=== PATIENT | female | born 1975 | race Caucasian/White ===

== ENCOUNTER 2020-06-21 11:47 | Outpatient (CLI) | payer BC, SELFPAY ==
[2020-06-21 12:04] LABS: Hematocrit 38.9 % (37.0-47.0); Mean Corpuscular HGB Conc 33.4 g/dl (32-36); Mean Corpuscular Hemoglobin 29.3 pg (26-34); Mean Corpuscular Volume 87.8 fl (80-100); Mean Platelet Volume 9.3 fl (7.4-10.4); Platelet Count Result 355 k/mm3 (150-375); Red Blood Count 4.43 M/mm3 (4.2-5.4); Red Cell Distribution Width 12.8 % (11.5-14.5); White Blood Count 12.6 K/mm3 (4.5-10.0)
[2020-06-21 12:32] LABS: Beta HCG Quantitative < 2.39 mIU/ML
[2020-06-21 12:47] LABS: Total Triiodothyronine (T3) 1.35 NG/ML (0.97-1.69)
[2020-06-26 07:46] LABS: Prolactin 5.9 ng/mL (***)
== END 2020-06-21 11:48 | disposition home or self-care (01) ==
PROVIDERS: Visit Provider Obstetrics & Gynecology
DX: N92.6 Irregular menstruation, unspecified (principal)
CPT/HCPCS: 36415; 84146; 84443; 84480; 84702; 85027

== ENCOUNTER → 2020-06-27 15:01 | Outpatient (CLI) | payer BC, SELFPAY ==
--- NOTE | ~2020-06-27 | US_ITS ---
EXAMINATION: US pelvic complete w TV DATE: 06/27/2020 15:30 INDICATION: Irregular menstruation, unspecified TECHNIQUE: Multiple transabdominal and endovaginal sonographic images of the pelvis were obtained. COMPARISON: None. FINDINGS: The uterus measures 11.9 x 5.2 x 6.2 cm. The endometrial complex measures 16 mm. The right ovary measures 4.0 x 3.0 x 3.3 cm and contains a 2.7 cm cyst. The left ovary measures 2.6 x 1.6 x 1.7 cm. There is normal vascular flow in the ovaries. There is no free fluid in the pelvis. IMPRESSION: 1. No sonographic correlate for the patient's symptoms. Reviewed, dictated and finalized at location A. 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
== END ==
PROVIDERS: Visit Provider Obstetrics & Gynecology
DX: N92.6 Irregular menstruation, unspecified (principal)
CPT/HCPCS: 76830; 76856

== ENCOUNTER → 2020-08-11 14:40 | Outpatient (CLI) | payer BC, SELFPAY ==
--- NOTE | ~2020-08-11 | MM_ITS ---
EXAMINATION: MM screening tesfaye BI w alessandra HISTORY: Screening mammogram TECHNIQUE: Craniocaudal and mediolateral oblique 3-D tomosynthesis images were obtained and synthetic 2-D images were generated. CAD analysis was submitted and interpreted. COMPARISON: No prior mammogram is available for comparison at this institution. BREAST PARENCHYMAL COMPOSITION: There are scattered areas of fibroglandular density. FINDINGS: There is no evidence of suspicious mass, calcification, or architectural distortion to sugg est malignancy in either breast. IMPRESSION: 1. No mammographic evidence of malignancy. 2. Recommend routine screening mammography in one year. BI-RADS Category 1: Negative Reviewed, dictated and finalized at location A. 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
== END ==
PROVIDERS: Visit Provider Obstetrics & Gynecology
DX: Z12.31 Encounter for screening mammogram for malignant neoplasm of breast (principal)
CPT/HCPCS: 77063; 77067

== ENCOUNTER → 2021-12-07 15:57 | Outpatient (CLI) | payer BC, SELFPAY ==
--- NOTE | ~2021-12-07 | MM_ITS ---
EXAMINATION: MM screening tesfaye BI w alessandra HISTORY: Screening mammogram TECHNIQUE: Craniocaudal and mediolateral oblique 3-D tomosynthesis images were obtained and synthetic 2-D images were generated. CAD analysis was submitted and interpreted. COMPARISON: 08/11/2020 BREAST PARENCHYMAL COMPOSITION: There are scattered areas of fibroglandular density. FINDINGS: There is no suspicious mass, calcification, or architectural distortion to suggest malignan cy in either breast. There has been no suspicious interval change. IMPRESSION: 1. No mammographic evidence of malignancy. 2. Recommend routine screening mammography in one year. BI-RADS Category 1: Negative Reviewed, dictated and finalized at location A.
== END ==
PROVIDERS: PCP Obstetrics & Gynecology; Visit Provider Obstetrics & Gynecology
DX: Z12.31 Encounter for screening mammogram for malignant neoplasm of breast (principal)
CPT/HCPCS: 77063; 77067

== ENCOUNTER 2022-09-17 15:50 | Observation (INO) | payer BC, SELFPAY ==
[2022-09-17] VITALS (23 sets, daily range): BP systolic 183–200; BP diastolic 103–123; PULSE 87–131; RESP 9–29; TEMP 36.4; O2SAT 98–100
--- NOTE | ~2022-09-17 | XR_ITS ---
EXAMINATION: XR chest 2V DATE: 09/17/2022 16:46 INDICATION: Racing heart. TECHNIQUE: PA and lateral views of the chest were obtained. COMPARISON: None FINDINGS: The lungs are clear with no focal airspace opacities, pulmonary edema, pleural effusion or pneumothor ax. The cardiomediastinal silhouette is normal. Mild thoracic spondylosis. Chronic appearing mild ant erior wedging of a few mid thoracic vertebral bodies. IMPRESSION: 1. No acute cardiopulmonary disease. Reviewed, dictated and finalized at location A.
--- NOTE | 2022-09-17 15:53 | ECG_ITS ---
Measurements Intervals Maurice Rate: 126 P: 54 RI: 146 QRS: 11 QRSD: 82 T: 28 QT: 309 QTc: 447 Interpretive Statements SINUS TACHYCARDIA CANNOT RULE OUT SEPTAL INFARCT, AGE INDETERMINATE BASELINE ARTIFACT- III, AVF ABNORMAL ECG NO PREVIOUS ECG AVAILABLE FOR COMPARISON Electronically Signed On 09-17-2022 16:56:02 CDT by Bernardo Sanderson D.O.
--- NOTE | 2022-09-17 17:40 | ED.ARRPALP ---
HPI - Arrhythmia/Palpitations General Chief Complaint: Arrhythmia/Palpitations <Sari Rosas PA-C - Last Filed: 09/18/22 03:27> Stated Complaint: heart is racing for no reason <Sari Rosas PA-C - Last Filed: 09/18/22 03:27> Time Seen by Provider: 09/17/22 17:34 <GALINA Watkins Last Filed: 09/18/22 03:27> Source: patient <GALINA Watkins Last Filed: 09/18/22 03:27> Mode of arrival: ambulatory <GALINA Watkins Last Filed: 09/18/22 03:27> Limitations: no limitations <GALINA Watkins Last Filed: 09/18/22 03:27> History of Present Illness HPI narrative: Patient is a 46-year-old female who presents to the ED with report of palpitations. Patient reports she was getting ready to take her son to a doctor's appointment around 345 today and attempting to put some make-up on when she suddenly noticed her heart beating fast. She looked down at her Fitbit watch and noted that her HR was in the 140s. Patient states that she was rushing around and felt like they needed to leave quickly to make it to the appointment, but she otherwise denied feeling anxious. She did become slightly anxious and short of breath after noticing that her heart rate was so fast. She denied any other symptoms. She denies chest pain, abdominal pain, nausea, vomiting, recent cough or cold symptoms, fevers. Patient reports having similar symptoms in the past with taking allergy pills. She did not take any medications today. Denies any new medications. She did not drink any caffeine. Denies history of atrial fibrillation, SVT. <GALINA Watkins Last Filed: 09/18/22 03:27> Related Data Home Medications: Home Medications Medication Instructions Recorded Confirmed calcium carbonate 600 mg calcium 600 mg PO DAILY 08/24/19 09/18/22 (1,500 mg) tablet (Calcium) folic acid 1 mg tablet 1 mg PO DAILY 08/24/19 09/18/22 multivitamin 1 tablet PO DAILY 09/01/20 09/18/22 psyllium husk (with sugar) 3 1 tbsp PO DAILY chronic 09/11/21 09/18/22 gram/7 gram oral powder (Metamucil constipation (with sugar)) clobetasol 0.05 % topical ointment 1 applic topical BID skin 09/18/22 09/18/22 irritation <Sari Rosas PA-C - Last Filed: 09/18/22 03:27> Allergies/Adverse Reactions: Allergies Allergy/AdvReac Type Severity Reaction Status Date / Time azithromycin Allergy Unknown Unknown Verified 09/17/22 15:53 clindamycin Allergy Unknown Unknown Verified 09/17/22 15:53 <GALINA Watkins Last Filed: 09/18/22 03:27> Review of Systems Review of Systems: CONSTITUTIONAL: Denies fever, chills, or sweats. ENT: Denies rhinorrhea, congestion, sore throat. CARDIOVASCULAR: See HPI. RESPIRATORY: See HPI. GASTROINTESTINAL: Denies abdominal pain, nausea, vomiting, or diarrhea. GENITOURINARY: Denies dysuria or hematuria. MUSCULOSKELETAL: Denies back pain, joint pain, or myalgia. NEUROLOGIC: Denies headache, numbness, or weakness. <GALINA Watkins Last Filed: 09/18/22 03:27> All systems reviewed & are unremarkable except as noted in HPI and below <GALINA Watkins Last Filed: 09/18/22 03:27> [facility] Past Medical History Medical History: Medical History Morbid obesity with BMI of 40.0-44.9, adult Vaginal delivery White coat syndrome with hypertension <GALINA Watkins Last Filed: 09/18/22 03:27> Surgical History Surgical History: Surgical History No pertinent past surgical history <GALINA Watkins Last Filed: 09/18/22 03:27> Family History Family History: Family History (Updated 09/18/22 @ 04:02 by Dafne Cabrales DO) Father Diabetes mellitus, Onset Age: 65 Patient's father is in good health Mother Patient's mother is Malignant melanoma,
[2022-09-17 18:20] LABS: Basophils Absolute Auto 0.1 K/mm3 (0.0-0.1); Basophils Percent Auto 0.8 % (0.2-1.2); Eosinophils Absolute Auto 0.2 K/mm3 (0-0.3); Eosinophils Percent Auto 2.2 % (0-4.4); Hematocrit 47.8 % (37.0-47.0); Hemoglobin 15.9 g/dL (12.0-15.0); Immature Granulocyte Absolute 0.02 K/mm3 (0.00-0.031); Immature Granulocyte Percent A 0.2 % (0-0.5); Lymphocytes Absolute Auto 2.86 K/mm3 (0.9-3.2); Lymphocytes Percent Auto 27.6 % (18.3-44.2); Mean Corpuscular HGB Conc 33.3 g/dl (32-36); Mean Corpuscular Hemoglobin 28.9 pg (26-34); Mean Corpuscular Volume 86.9 fl (80-100); Mean Platelet Volume 9.6 fl (7.4-10.4); Monocytes Absolute Auto 0.7 K/mm3 (0.1-0.6); Neutrophils Absolute Auto 6.4 K/mm3 (1.3-6.7); Neutrophils Percent Auto 62.2 % (45.5-73.1); Platelet Count Result 425 k/mm3 (150-375); Red Cell Distribution Width 13.3 % (11.5-14.5); White Blood Count 10.4 K/mm3 (4.5-10.0)
[2022-09-17 18:29] LABS: Alanine Aminotransferase 57 U/L (6-35); Albumin Level 4.8 g/dL (3.5-5.1); Alkaline Phosphatase 82 U/L (38-126); Anion Gap 7 mmol/L (8-16); Aspartate Amino Transferase 45 U/L (14-36); Bilirubin,Total 0.6 mg/dL (0.2-1.3); Blood Urea Nitrogen 12 mg/dL (7-17); Calcium 9.2 mg/dL (8.4-10.2); Carbon Dioxide 24 mmol/L (22-30); Chloride 108 mmol/L (98-107); Estimated CRCL calculation 119 ml/min; Estimated Glomerular Filt Rate > 60; Glucose 97 mg/dL (65-110); Lipase 51 U/L (23-300); Magnesium 2.2 mg/dL (1.6-2.3); Potassium 4.3 mmol/L (3.4-5.0); Sodium 139 mmol/L (137-145)
[2022-09-17 18:33] LABS: Appearance Urine Clear (Clear); Bilirubin Urine Negative (Negative); Blood Urine 3+ (Negative); Color Urine Yellow (Yellow); Glucose Urine UA Negative (Negative); Ketones Urine Negative (Negative); Leukocyte Esterase Ur Negative LEU/UL (Negative); Nitrate Urine Negative (Negative); Protein Urine Negative (Negative); Urobilinogen Urine 0.2 mg/dL (<2.0)
[2022-09-17 18:36] LABS: Partial Thromboplastin Time 28.2 SECONDS (22.3-36.8); Prothrombin Time 12.8 Seconds (11.1-14.7)
[2022-09-17 18:41] LABS: Influenza A QL RT-PCR Negative (Negative); Influenza B QL RT-PCR Negative (Negative); SARS-CoV-2 RNA PCR Negative
[2022-09-17 18:45] LABS: Add Urine Microscopic? YES
[2022-09-17 18:46] LABS: Bacteria Urine None Seen /hpf; Squamous Epithelial Cell Urine Few /hpf (Few); WBC Urine None seen /hpf (0-3)
[2022-09-17 19:00] LABS: Thyroid Stimulating Hormone 0.238 uIU/mL (0.465-4.680)
[2022-09-17 19:07] LABS: D Dimer 0.27 ug/mL (<0.48)
[2022-09-17] MEDS: SODIUM CHLORIDE 0.9% IV 1,000 ML 999 ML IV CONT ×2 (19:23→21:57)
[2022-09-17 20:00] LABS: Troponin I 0.044 ng/mL (0.000-0.034)
[2022-09-17] MEDS: LABETALOL HCL INJ 100 MG/20 ML VIAL 20 MG IV PUSH (20:18)
[2022-09-17 20:59] LABS: Free T4 Free Thyroxine 1.08 ng/mL (0.78-2.19)
[2022-09-17] MEDS: hydrALAZINE HCL 20 MG/ML VIAL 10 MG IV PUSH (21:57)
[2022-09-17] MEDS: METOPROLOL SUCCINATE EXT REL 25 MG TABCR PO (22:44)
[2022-09-18] VITALS (9 sets, daily range): BP systolic 129–205; BP diastolic 51–120; PULSE 78–91; RESP 16–18; TEMP 36–36.4; O2SAT 99–100; BMI 40.5
--- NOTE | 2022-09-18 | ECHO_ITS ---
Patient Info Name: Kari العراقي Age: 46 years : 1975 Gender: Female Ht: 65 in Wt: 222 lbs BSA: 2.19 m2 HR: 94 bpm BP: 129 / 51 mmHg Technical Quality: Good Exam Date: 09/18/2022 11:33 AM Exam Location: [facility] Patient Status: Inpatient Admit Date: 09/17/2022 Staff Ordering Physician: Dafne Cabrales DO Director Heart: Kamaljit Herbert RDCS, RT Attending Provider: Dafne Cabrales DO Referring Physician: Keron KLINE; Exam Type: CA echo doppler color flow Study Info Indications - Elevated troponin R00.0 - Tachycardia, unspecified Complete two-dimensional, color flow and Doppler transthoracic echocardiogram is performed. Strain analysis performed. Summary 1. Complete two-dimensional, color flow and Doppler transthoracic echocardiogram is performed. 2. Left ventricular chamber dimension is normal. 3. Left ventricular systolic function is normal, estimated at 60-65%. 4. The left ventricular diastolic function is normal. 5. E/e' 7 is not elevated. 6. Global longitudinal strain is normal at -19.3%. 7. There is trace tricuspid valve regurgitation. Left Ventricle E/e' 7 is not elevated. Global longitudinal strain is normal at -19.3%. Left ventricular chamber dimension is normal. Left ventricular systolic function is normal, estimated at 60-65%. The left ventricular diastolic function is normal. Right Ventricle Right ventricular systolic function is normal and with normal TAPSE 2.6 cm. Right ventricular chamber dimension is normal. Left Atria Left atrial chamber dimension is normal. Right Atria Right atrial chamber dimension is normal. Aortic Valve The aortic valve is trileaflet. There is no aortic valve stenosis. There is no aortic valve regurgitation. Pulmonic Valve There is no pulmonic regurgitation. Mitral Valve There is no mitral valve stenosis. There is no mitral valve regurgitation. Tricuspid Valve RVSP is not calculated due to an inadequate TR jet. There is trace tricuspid valve regurgitation. Pericardium/Pleural There is no pericardial effusion. Inferior Vena Cava Normal inferior vena cava with >50% collapse upon inspiration consistent with normal right atrial pressure, 5 mmHg. Aorta The aortic root size at the sinus of Valsalva is normal. Left Ventricular Outflow Tract Name Value Normal LVOT 2D LVOT Diameter 1.9 cm LVOT Doppler LVOT Peak Gradient 6 mmHg LVOT Mean Gradient 3 mmHg LVOT VTI 26 cm LVOT VTI/AV VTI Ratio 0.7 LVOT Stroke Volume 78 ml LVOT CO 6.8 l/min LVOT CI 3.1 l/min/m2 Mitral Valve Name Value Normal MV Doppler MV Decel Brooks 503 cm/s2
--- NOTE | 2022-09-18 00:42 | PM.IMHP ---
H&P: HPI History of Present Illness Date/Time: 09/18/22 00:42 Chief Complaint: Elevated heart rate Narrative: 46-year-old female with past medical history of morbid obesity and white coat hypertension who presented to the ER with tachycardia. The patient reports that she was getting ready to leave the house with her son and knew that she needed to her ED already. She was putting on her makeup when she noticed her heart rate felt as if it was fast. She looked at her fit bit in her heart rate was 140. She denies any associated chest pain, shortness breast or any recent lower extremity swelling or leg pain. She has relatively active and usually walks on the treadmill on a somewhat frequent basis. She reports that she usually walks on the treadmill at a brisk pace for anywhere from 30-45 minutes. She has not been able to do so in the last couple of weeks because she had a upper GI bug that caused her to have nausea vomiting and diarrhea. The symptoms for the GI symptoms occurred for 2 days. She still has some residual abdominal pain in did not feel quite right so she just had not exercised since then. She reports that she still feels as if she may be a little bit dehydrated from her GI illness. She denies any recent fevers or chills. The she has not had any orthopnea. She denies any significant changes in her weight. Her appetite has remained stable. She did not notice any hematemesis coffee-ground emesis or hematochezia or melena during her GI illness. She does have history of white coat hypertension but on review patient's chart usually her white coat hypertension symptoms usually involve systolic blood pressures of 140-150. In the ER the patient's blood pressures ranged between 180-200 systolic over 103-123 diastolic. She reports that she used to check her blood pressures on occasion but has not done so in a significant amount time. She reports that she did feel somewhat anxious once she realized her heart rate was elevated. However she denies sensation of anxiety prior to onset of symptoms. She has not been taking any energy drinks or herbal supplements. She denies any significant caffeine use. She never has shortness of breath or chest pain with her exercise. She denies any calf pain or swelling. D-dimer in the ER was negative. She is low risk for pulmonary embolism on Wells criteria. She denies any history of snoring. She reports that she usually does not sleep much. Her reports that it is like the patient is afraid she is going to miss something. She has never been a sound sleeper for her entire life. Subsequently she states that she is always tired. She denies any headache or vision changes. She is currently on her menstrual cycle. She had 1 month of unusual menstrual bleeding but has returned to her normal cycle. She does not have a history of essential hypertension and her father was in his late 70s does not even have hypertension. Review of Systems Review of Systems: 12 systems were reviewed with pertinent positives and negatives per HPI. Except as documented in the HPI, all other systems were reviewed and are negative. [facility] Past Medical History Medical History Morbid obesity with BMI of 40.0-44.9, adult Vaginal delivery White coat syndrome with hypertension Surgical History Surgical History No pertinent past surgical history Family History Family History (Updated 09/18/22 @ 04:02 by Dafne Cabrales DO) Father Diabetes mellitus, Onset Age: 65 Patient's father is in good health Mother Patient's mother is Malignant melanoma, Onset Age: 42 Social History Social History (Updated 09/18/22 @ 04:04 by Dafne Cabrales DO) Social History: She lives at home with her and 10-year-old son. She is a lifelong nonsmoker and does not drink or use illicit substances. 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
--- NOTE | 2022-09-18 03:24 | PC.NURSE ---
Pt admitted to 320 from ER for c/o palpitations. Currently no symptoms A/Ox4 calm, cooperative up in room-Tele shows SR. SL- flushed patent. Room air -- lungs clear Given food- tolerated well. Hx of chronic constipation- use of metamucil, skin irritation in groin folds at times- uses clobetasol 0.05% PRN, Took control medications 2021 for irregular bleeding which caused increased bleeding- stopped medication and menses returned to normal ...Hx of COVID 03/22 received flu/ covid vaccine.. 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 Allergies - azithromycin, clindamycin- rash. No valuables per pt, belongings as bedside. Instructions/ orientation given to unit, plan of care. Continue to monitor.
[2022-09-18 03:42] LABS: Troponin I 0.019 ng/mL (0.000-0.034)
[2022-09-18 05:52] LABS: Hematocrit 45.7 % (37.0-47.0); Hemoglobin 14.8 g/dL (12.0-15.0); Mean Corpuscular HGB Conc 32.4 g/dl (32-36); Mean Corpuscular Hemoglobin 28.7 pg (26-34); Mean Corpuscular Volume 88.7 fl (80-100); Mean Platelet Volume 10.1 fl (7.4-10.4); Platelet Count Result 441 k/mm3 (150-375); Red Blood Count 5.15 M/mm3 (4.2-5.4); Red Cell Distribution Width 13.7 % (11.5-14.5); White Blood Count 12.6 K/mm3 (4.5-10.0)
[2022-09-18 06:33] LABS: Thyroid Stimulating Hormone Reflex 0.663 uIU/mL (0.465-4.68)
[2022-09-18] MEDS: ACETAMINOPHEN 325 MG TABLET 650 MG PO ×2 (07:51→14:28)
[2022-09-18] MEDS: CALCIUM CARBONATE (OSCAL) 500 MG TABLET PO (07:52)
[2022-09-18] MEDS: METOPROLOL SUCCINATE EXT REL 50 MG TABCR PO (07:52)
[2022-09-18] MEDS: FOLIC ACID 1 MG TABLET PO (07:52)
[2022-09-18] MEDS: MULTIVITAMINS THERAPEUTIC TAB (*BKC) 1 TABLET PO (07:53)
[2022-09-18] MEDS: ENOXAPARIN 40 MG/0.4 ML SYRINGE SUB-Q (07:53)
[2022-09-18 10:18] LABS: Anion Gap 10 mmol/L (8-16); Blood Urea Nitrogen 9 mg/dL (7-17); Calcium 8.8 mg/dL (8.4-10.2); Carbon Dioxide 21 mmol/L (22-30); Chloride 109 mmol/L (98-107); Estimated CRCL calculation 147 ml/min; Estimated Glomerular Filt Rate > 60; Glucose 111 mg/dL (65-110); Potassium 3.8 mmol/L (3.4-5.0); Sodium 140 mmol/L (137-145)
[2022-09-18] MEDS: hydrALAZINE HCL 20 MG/ML VIAL 10 MG IV PUSH (14:21)
--- NOTE | 2022-09-18 15:57 | PM.DS ---
DS: Admitting Diagnosis Discharge Date 09/18/22 Admitting Diagnosis Dehydration, tachycardia DS: Discharge Diagnosis Discharge Diagnosis (1) Hypertensive urgency: Code(s): I16.0 - Hypertensive urgency Status: Acute (2) Sinus tachycardia: Code(s): R00.0 - Tachycardia, unspecified Status: Acute (3) Elevated troponin: Code(s): R77.8 - Other specified abnormalities of plasma proteins Status: Acute DS: Summary Hospital Course Reason for hospitalization: dehydration, tachycardia Hospital Course: This is a 46 year old with history of white coat hypertension present to the ED due to tachycardia. Patient had recently had a GI bug that caused vomiting And diarrhea. Patient had been putting on her makeup at home and her Fitbit showed her that her heart rate was 140. Patient felt as if her heart was racing at this time. Patient did not have any associated chest pain, shortness a breath or lower extremity edema. patient with a history of white coat hypertension with blood pressures usually in the 140-150. When she arrived to the ED her systolic blood pressure was between 180 and 200. Patient has pretty bad anxiety about being in the hospital and while I was talking to her she started crying. Patient does have blood pressure cuff at home and she does check her blood pressure on occasion although has not done it recently. Once patient saw her elevated heart rate she became severely inches which could have caused her heart rate to become even more elevated and her blood pressure to become elevated as well. Patient was given metoprolol and hydralazine for hypertension. EKG revealed sinus tachycardia. Patient's troponins were trended and were flat. Patient's patient's surgery prone in within normal range. This most likely due to hypertension rather than cardiac ischemia. Chest x-ray with no acute cardiopulmonary process. Patient did have mildly elevated white blood cell count but this could be reactive. Patient's BUN and creatinine within normal limits. Patient did have elevated hemoglobin hematocrit indicating the patient could be dehydrated especially given the fact that she had recent nausea vomiting for several days. Patient received 2 L of normal saline. After patient received 2 L of normal saline heart rate Stabilized and remained in normal range. Patient's TSH was low at 0.238 and T4 was normal. I recommend this being recheck it as an outpatient with primary care provider. Patient feeling much better although she is still very anxious due to being in the hospital. Patient would like to be discharged due to feeling even worse now that she is in the hospital due to her anxiety. I do believe that patient's blood pressure is due to her anxiety and nervousness about being in the hospital. Recommend that patient keep a blood pressure log and follow-up with a primary care provider in 1 week. I will give patient metoprolol 50 mg as an outpatient and instructed discontinue if heart rate lower than 50 and systolic blood pressure less than 100. Time Spent with Patient Time attestation: Total time spent providing and/or coordinating discharge services: DS: Data Data Completed and Pending Labs on day of discharge: Labs from last 24 hours 09/18/22 09/18/22 09/18/22 03:14 03:14 03:10 WBC 12.6 H RBC 5.15 Hgb 14.8 Hct 45.7 MCV 88.7 MCH 28.7 MCHC 32.4 RDW 13.7 Plt Count 441 H MPV 10.1 Immature Gran % (Auto) Neut % (Auto) Lymph % (Auto) Coleman % (Auto) Eos % (Auto) Baso % (Auto) Lymph # (Auto) Coleman # (Auto) Eos # (Auto) Baso # (Auto) Abs Immat Gran (auto) Absolute Neuts (auto) Absolute Nucleated RBC Nucleated RBC % PT INR APTT D-Dimer Sodium Potassium Chloride Carbon Dioxide Anion Gap BUN Creatinine Estim Creat Clear Calc Estimated GFR Glucose Calcium Magnesium
== END 2022-09-18 16:47 | disposition home or self-care (01) ==
LOC: ANHED 21:46 → ANH3MEDSUR 09-18 02:19 → ANHIMU 09-19 10:48
PROVIDERS: Emergency Medicine; Admitting Provider Internal Medicine; Emergency Provider Physician Assistant; Visit Provider Internal Medicine
DX: I16.0 Hypertensive urgency (principal); R00.0 Tachycardia, unspecified; R77.8 Other specified abnormalities of plasma proteins; R71.8 Other abnormality of red blood cells; E66.01 Morbid (severe) obesity due to excess calories; Z68.41 Body mass index [BMI] 40.0-44.9, adult; Z20.822 Contact with and (suspected) exposure to COVID-19; R94.31 Abnormal electrocardiogram [ECG] [EKG]; Z79.52 Long term (current) use of systemic steroids; Z79.899 Other long term (current) drug therapy
CPT/HCPCS: 36415; 71046; 80048; 80053; 81001; 83690; 83735; 84439; 84443; 84484; 85025; 85027; 85380; 85610; 85730; 87636; 93005; 93306; 96361; 96372; 96374; 96375; 99285; A9270; G0378; J0360; J1650; J7030

== ENCOUNTER 2023-05-06 01:47 | Day surgery (SDC) | payer BC, SELFPAY ==
[2023-04-25 14:20] VITALS: BMI 38.0
--- NOTE | 2023-05-03 10:07 | SUR.PREOP ---
Left message on pt's voicemail regarding upcoming procedure and prep on Saturday
--- NOTE | 2023-05-03 10:10 | SUR.PREOP ---
called patient about upcoming procedure on Saturday. Message left on patient's voicemail regarding arrival time and prep starting on Saturday.
[2023-05-06 10:26] VITALS: BP 166/87; PULSE 108; RESP 18; TEMP 36.4; O2SAT 100
[2023-05-06] MEDS: LACTATED RINGERS 1,000 ML 150 ML IV CONT (10:38)
--- NOTE | 2023-05-06 10:49 | PM.HPGS ---
History of Present Illness History of Present Illness Consent: Risks, benefits, and alternatives have been discussed and questions answered. Patient agrees to proceed with procedure. Chief complaint: neoplasm screening Narrative: Kari العراقي is a 47 year old female Presents for screening colonoscopy. Patient's current weight appetite and bowel movements are normal. Patient denies abdominal pain. Bowel habits are normal. She denies any bleeding. Family history noncontributory. Review of Systems Review of Systems: Review of systems noncontributory. [facility] Past Medical History Medical History Chronic insomnia Morbid obesity with BMI of 40.0-44.9, adult Vaginal delivery White coat syndrome with hypertension Surgical History Surgical History No pertinent past surgical history Family History Family History Father Diabetes mellitus, Onset Age: 65 Patient's father is in good health Mother Patient's mother is Malignant melanoma, Onset Age: 42 Social History Social History Social History: She lives at home with her and 10-year-old son. She is a lifelong nonsmoker and does not drink or use illicit substances. 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 Gender identity (if verbalized by the patient): Female Sexual Orientation (if Verbalized by the Patient): Straight or Heterosexual Spiritual care concerns: No Meds Home Medications and Allergies Home Medications Medication Instructions Recorded Confirmed Type multivitamin 1 tablet PO DAILY 09/01/20 05/06/23 History psyllium husk (with sugar) 3 1 tbsp PO DAILY chronic 09/11/21 05/06/23 History gram/7 gram oral powder (Metamucil constipation (with sugar)) clonazepam 0.5 mg tablet 0.5 mg PO QHS #30 tabs 09/20/22 05/06/23 Rx clobetasol 0.05 % topical ointment 1 applic topical BID skin 10/11/22 05/06/23 Rx irritation #30 grams fluoxetine 10 mg tablet 10 mg PO DAILY #90 tabs 02/28/23 05/06/23 Rx lisinopril 20 1 tablet PO DAILY #90 tabs 04/15/23 05/06/23 Rx mg-hydrochlorothiazide 25 mg tablet Adult Probiotic 1 tab-cap PO DAILY 04/25/23 05/06/23 History Emanuel 1 tab-cap PO DAILY 04/25/23 05/06/23 History calcium carbonate 600 mg-vitamin 1 tablet PO DAILY 04/25/23 05/06/23 History D3 10 mcg (400 unit) tablet (Calcium 600 + D(3)) garlic 1,000 mg capsule 1,000 mg PO DAILY 04/25/23 05/06/23 History propranolol 20 mg tablet 20 mg PO Q8H PRN Tachycardia 04/25/23 05/06/23 History Allergies Allergy/AdvReac Type Severity Reaction Status Date / Time azithromycin Allergy Intermediate Rash Verified 05/06/23 10:21 clindamycin Allergy Intermediate Rash Verified 05/06/23 10:21 Vital Signs Vital Signs - 24 hr 05/06/23 10:26 Temperature 97.6 F Pulse Rate 108 H Respiratory Rate 18 Blood Pressure 166/87 H Pulse Oximetry 100 Oxygen Delivery Room Air Exam Narrative: Physical exam reveals patient to be alert. Vital signs stable. HEENT exam is unremarkable. Patient is anicteric. Lungs are clear to auscultation and percussion. Heart is without murmur or extra sounds. Abdomen Is
--- NOTE | 2023-05-06 10:58 | WPDANESEPPF ---
Anes - Initial Pre Proc Eval Procedure: Operation Date: 05/06/23 11:30 Proposed Procedures p Screening Colonoscopy - Isaiah Last MD Date/Time: 05/06/23 10:58 Surgeon: Isaiah Last MD Pre Op Diagnosis: neoplasm screening Patient Data Age: 47 Gender: F Height: 1.65 m Weight: 107 kg Last Vital Signs Temp 97.6 F 05/06/23 10:26 Pulse 108 H 05/06/23 10:26 Resp 18 05/06/23 10:26 BP 166/87 H 05/06/23 10:26 Pulse Ox 100 05/06/23 10:26 O2 Del Method Room Air 05/06/23 10:26 Allergies Allergy/AdvReac Type Severity Reaction Status Date / Time azithromycin Allergy Intermediate Rash Verified 05/06/23 10:21 clindamycin Allergy Intermediate Rash Verified 05/06/23 10:21 Home Medications Medication Instructions Recorded Confirmed Type multivitamin 1 tablet PO DAILY 09/01/20 05/06/23 History psyllium husk (with sugar) 3 1 tbsp PO DAILY chronic 09/11/21 05/06/23 History gram/7 gram oral powder (Metamucil constipation (with sugar)) clonazepam 0.5 mg tablet 0.5 mg PO QHS #30 tabs 09/20/22 05/06/23 Rx clobetasol 0.05 % topical ointment 1 applic topical BID skin 10/11/22 05/06/23 Rx irritation #30 grams fluoxetine 10 mg tablet 10 mg PO DAILY #90 tabs 02/28/23 05/06/23 Rx lisinopril 20 1 tablet PO DAILY #90 tabs 04/15/23 05/06/23 Rx mg-hydrochlorothiazide 25 mg tablet Adult Probiotic 1 tab-cap PO DAILY 04/25/23 05/06/23 History Emanuel 1 tab-cap PO DAILY 04/25/23 05/06/23 History calcium carbonate 600 mg-vitamin 1 tablet PO DAILY 04/25/23 05/06/23 History D3 10 mcg (400 unit) tablet (Calcium 600 + D(3)) garlic 1,000 mg capsule 1,000 mg PO DAILY 04/25/23 05/06/23 History propranolol 20 mg tablet 20 mg PO Q8H PRN Tachycardia 04/25/23 05/06/23 History Patient hx anesthesia problems: none Family hx anesthesia problems: none Results Review: All pre-operative results and documents have been reviewed as part of the pre-operative evaluation. FORMERLY [facility], [facility] Past Medical History Medical History Chronic insomnia Morbid obesity with BMI of 40.0-44.9, adult Vaginal delivery White coat syndrome with hypertension Surgical History Surgical History No pertinent past surgical history Family History Family History Father Diabetes mellitus, Onset Age: 65 Patient's father is in good health Mother Patient's mother is Malignant melanoma, Onset Age: 42 Social History Social History Social History: She lives at home with her and 10-year-old son. She is a lifelong nonsmoker and does not drink or use illicit substances. 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
[2023-05-06 11:40] VITALS: BP 100/54; PULSE 81; RESP 21; O2SAT 100
[2023-05-06 11:50] VITALS: BP 109/57; PULSE 76; RESP 18; O2SAT 100
[2023-05-06 12:00] VITALS: BP 120/70; PULSE 71; RESP 18; O2SAT 100
== END 2023-05-06 12:10 | disposition home or self-care (01) ==
PROVIDERS: PCP Family Medicine; Visit Provider Internal Medicine Gastroenterology
PROC: 0DJD8ZZ Inspection of Lower Intestinal Tract, Via Natural or Artificial Opening Endoscopic (ICD-10-PCS; CPT 45378; principal; 2023-05-06 11:30)
DX: Z12.11 Encounter for screening for malignant neoplasm of colon (principal); K63.5 Polyp of colon; K64.8 Other hemorrhoids; F51.04 Psychophysiologic insomnia; R03.0 Elevated blood-pressure reading, without diagnosis of hypertension; E66.01 Morbid (severe) obesity due to excess calories; Z68.39 Body mass index [BMI] 39.0-39.9, adult; Z80.9 Family history of malignant neoplasm, unspecified
CPT/HCPCS: 45385; 45380; 88305; J2704; J7120

== ENCOUNTER → 2023-05-31 13:49 | Outpatient (CLI) | payer BC, SELFPAY ==
--- NOTE | ~2023-05-31 | MM_ITS ---
EXAMINATION: MM screening tesfaye BI w alessandra HISTORY: Screening mammogram TECHNIQUE: Craniocaudal and mediolateral oblique 3-D tomosynthesis images were obtained and synthetic 2-D images were generated. CAD analysis was submitted and interpreted. COMPARISON: 12/17/2021, bilateral screening mammogram examinations BREAST PARENCHYMAL COMPOSITION: There are scattered areas of fibroglandular density. FINDINGS: There is no evidence of suspicious mass, calcification, or architectural distortion to sugg est malignancy in either breast. There has been no suspicious interval change. IMPRESSION: 1. No mammographic evidence of malignancy. 2. Recommend routine screening mammography in one year. BI-RADS Category 1: Negative Reviewed, dictated and finalized at location A. G MANAGER
== END ==
PROVIDERS: PCP Family Medicine; Visit Provider Obstetrics & Gynecology
DX: Z12.31 Encounter for screening mammogram for malignant neoplasm of breast (principal)
CPT/HCPCS: 77063; 77067

== ENCOUNTER 2023-09-02 09:22 | Outpatient (CLI) | payer OTHER, SELFPAY ==
[2023-09-02 11:06] LABS: Basophils Absolute Auto 0.1 K/mm3 (0.0-0.1); Basophils Percent Auto 0.8 % (0.2-1.2); Eosinophils Absolute Auto 0.3 K/mm3 (0-0.3); Hematocrit 42.2 % (37.0-47.0); Hemoglobin 13.4 g/dL (12.0-15.0); Immature Granulocyte Absolute 0.02 K/mm3 (0.00-0.031); Immature Granulocyte Percent A 0.2 % (0-0.5); Lymphocytes Absolute Auto 3.77 K/mm3 (0.9-3.2); Lymphocytes Percent Auto 38.2 % (18.3-44.2); Mean Corpuscular HGB Conc 31.8 g/dl (32-36); Mean Corpuscular Hemoglobin 28.4 pg (26-34); Mean Corpuscular Volume 89.4 fl (80-100); Mean Platelet Volume 9.9 fl (7.4-10.4); Monocytes Absolute Auto 0.7 K/mm3 (0.1-0.6); Monocytes Percent Auto 6.6 % (2.6-8.5); Neutrophils Percent Auto 51.2 % (45.5-73.1); Platelet Count Result 347 k/mm3 (150-375); Red Blood Count 4.72 M/mm3 (4.2-5.4); Red Cell Distribution Width 13.5 % (11.5-14.5); White Blood Count 9.9 K/mm3 (4.5-10.0)
[2023-09-02 11:31] LABS: Thyroid Stimulating Hormone < 0.015 uIU/mL (0.465-4.680); Total Triiodothyronine (T3) 1.46 NG/ML (0.97-1.69)
[2023-09-02 12:09] LABS: Free T4 Free Thyroxine 0.86 ng/mL (0.78-2.19)
[2023-09-02 14:40] LABS: Alanine Aminotransferase 38 U/L (6-35); Albumin Level 4.3 g/dL (3.5-5.1); Alkaline Phosphatase 67 U/L (38-126); Anion Gap 8 mmol/L (8-16); Aspartate Amino Transferase 37 U/L (14-36); Bilirubin,Total 0.5 mg/dL (0.2-1.3); Blood Urea Nitrogen 17 mg/dL (7-17); Calcium 9.4 mg/dL (8.4-10.2); Carbon Dioxide 22 mmol/L (22-30); Chloride 105 mmol/L (98-107); Cholesterol 231 mg/dL (0-200); Estimated Glomerular Filt Rate > 60; Glucose 93 mg/dL (65-110); HDL Direct 41 mg/dL; Potassium 3.9 mmol/L (3.4-5.0); Sodium 135 mmol/L (137-145); Triglycerides 381 mg/dL (<150)
[2023-09-02 14:48] LABS: LDL Cholesterol Direct 120 mg/dL
== END 2023-09-02 09:23 | disposition home or self-care (01) ==
LOC: ANHLAB 09:24
PROVIDERS: PCP Family Medicine; Visit Provider Family Medicine
DX: I10 Essential (primary) hypertension (principal); E07.9 Disorder of thyroid, unspecified; E78.2 Mixed hyperlipidemia
CPT/HCPCS: 36415; 80053; 80061; 84439; 84443; 84480; 85025

== ENCOUNTER 2023-11-04 10:38 | Outpatient (CLI) | payer OTHER, SELFPAY ==
--- NOTE | ~2023-11-04 | US_ITS ---
EXAMINATION: US thyroid DATE: 11/04/2023 11:08 INDICATION: Other specified abnormal findings of blood chemistry. TECHNIQUE: Multiple ultrasound images of the thyroid were obtained. COMPARISON: None. FINDINGS: The right thyroid lobe measures 4.4 x 1.6 x 1.4 cm. The left thyroid lobe measures 4.8 x 1.4 x 1.4 c m. In the right thyroid lobe, there is an 8 mm solid, hypoechoic, wider than tall nodule ill-defined margin without echogenic foci (TI-RADS TR4). IMPRESSION: 1. Small thyroid nodule, likely not clinically significant. No follow-up is needed. Reviewed, dictated and finalized at location A. IMPRESSION: 1. Small thyroid nodule, likely not clinically significant. No follow-up is nee ded.
--- NOTE | ~2023-11-04 | US_ITS ---
Limited Abdominal Sonogram: Real-time sonographic imaging of the right upper quadrant was performed. Clinical History: Abnormal serum enzyme levels Findings: The liver appears mildly echogenic, with no evidence of mass lesion or bile duct dilatatio n. Main portal vein demonstrates normal direction of flow. The gallbladder is well distended, and con tains echogenic, shadowing gallstones. No gallbladder wall thickening. The common bile duct measures 5 mm. The visualized pancreas, aorta, and IVC are unremarkable. Impression: Cholelithiasis. Diffuse fatty infiltration of the liver. Reviewed, dictated and finalized at location . Impression: Cholelithiasis. Diffuse fatty infiltration of the liver.
== END 2023-11-04 10:39 ==
PROVIDERS: PCP Family Medicine; Visit Provider Family Medicine
DX: R74.8 Abnormal levels of other serum enzymes (principal); R79.89 Other specified abnormal findings of blood chemistry; K80.20 Calculus of gallbladder without cholecystitis without obstruction; K76.0 Fatty (change of) liver, not elsewhere classified
CPT/HCPCS: 76536; 76705

== ENCOUNTER 2024-02-18 10:20 | Outpatient (CLI) | payer OTHER, SELFPAY ==
[2024-02-18 11:37] LABS: Free T4 Free Thyroxine 0.92 ng/mL (0.78-2.19)
[2024-02-19 14:54] LABS: Thyroid Peroxidase Antibodies 40 IU/mL (<9)
== END 2024-02-18 10:21 | disposition home or self-care (01) ==
LOC: ANHLAB 10:21
PROVIDERS: PCP Family Medicine; Visit Provider Family Medicine
DX: E05.90 Thyrotoxicosis, unspecified without thyrotoxic crisis or storm (principal)
CPT/HCPCS: 36415; 84439; 84443; 86376

== ENCOUNTER 2024-06-09 12:11 | Outpatient (CLI) | payer OTHER, SELFPAY ==
--- NOTE | ~2024-06-09 | MM_ITS ---
EXAMINATION: MM screening tesfaye BI w alessandra HISTORY: Screening TECHNIQUE: Craniocaudal and mediolateral oblique 3-D tomosynthesis images were obtained and synthetic 2-D images were generated. CAD analysis was submitted and interpreted. COMPARISON: Comparison to multiple prior studies sequentially, with oldest reviewed study dated 08/11. BREAST PARENCHYMAL COMPOSITION: Not dense: There are scattered areas of fibroglandular density. FINDINGS: There is no evidence of suspicious mass, calcification, or architectural distortion to sugg est malignancy in either breast. There has been no suspicious interval change. IMPRESSION: 1. No mammographic evidence of malignancy. 2. Recommend routine screening mammography in one year. BI-RADS Category 1: Negative Reviewed, dictated and finalized at location B. MER CHEMIST
== END 2024-06-09 12:12 | disposition home or self-care (01) ==
LOC: MICIMG 12:11
PROVIDERS: PCP Family Medicine; Visit Provider Obstetrics & Gynecology
DX: Z12.31 Encounter for screening mammogram for malignant neoplasm of breast (principal)
CPT/HCPCS: 77063; 77067